=== PATIENT | male | born 1950 | race Caucasian/White ===

== ENCOUNTER 2018-07-21 05:50 | Inpatient (IN) | payer OTHER, MEDICARE ==
[~2018-07-21] VITALS: Ht 167.6 cm; Wt 70.8 kg
[~2018-07-21 05:50] MED LIST: CRESTOR20 M2 PO; MECLIZINE HCL25 MG PO; SCOPOLAMINE1 EAC1 TD; ZOFRAN ODT4 M1 SL
[2018-07-21] MEDS ORDERED: METOPROLOL TART25 M1 PO (06:12)
[2018-07-21] MEDS ORDERED: BRILINTA90 M1 PO (06:12)
[2018-07-21] MEDS ORDERED: LISINOPRIL5 M1 PO (06:12)
[2018-07-21] MEDS ORDERED: LO-DOSE ASPIRIN81 MG PO (06:12)
--- NOTE | 2018-07-21 06:14 | ED GENERAL ADULT ---
History of Present Illness General Chief Complaint: Syncope and Near-Syncope Stated Complaint: PER PT C/O SYNCOPE,WEAKNESS,+N, CARDIAC HX Source: patient, family Exam Limitations: no limitations Vital Signs & Intake/Output Vital Signs & Intake/Output Vital Signs Date Time Temp Pulse Resp B/P B/P Pulse O2 O2 Flow FiO2 Mean Ox Delivery Rate 07/22 0647 101.1 80 18 118/54 90 07/22 0640 101.1 07/22 0000 100.0 07/22 0000 Nasal 2.0L Cannula 07/21 2234 103.1 92 18 118/62 92 Nasal 2.0L Cannula 07/21 2120 100.0 07/21 2036 103.1 07/21 1410 98.4 82 18 101/51 92 Room Air 07/21 1154 99.0 07/21 1137 99.0 77 18 96/51 96 Nasal 1.0L Cannula ED Intake and Output 07/22 0000 07/21 1200 Intake Total 600 1100 Output Total 400 450 Balance 200 650 Intake, IV 1100 Intake, Oral 600 Number 1 Bowel Movements Output, Urine 400 450 Patient 156 lb 156 lb Weight Weight Estimated Measurement Method Allergies Coded Allergies: No Known Allergies (09/06/17) Triage Note: PER PT/ SOB, LABORED AND FEVERS SINCE THURSDAY ALSO NEWLY INCONTINENT, FEVER IN TRIAGE 103.0 Triage Nurses Notes Reviewed? yes Onset: Gradual Duration: day(s): Timing: recent history Injury Environment: home Severity: moderate Modifying Factors: Improves With: rest. Associated Symptoms: cough HPI: 67 YO gentleman h/o OK, s/p stent Oct 2017, h/o vertigo, h/o cigarette smoking, presents with fever for the past 5-6 days, with occasional rigors, also with non productive cough. This morning, approximately 2:30am, he had an episode of near syncope. "I was in the bathroom and got really dizzy... I fell... didn't lose consciousness, but I couldn't get up... I had to roll on my stomach and get up real slowly." He notes loose stool and increased urination, without dysuria, but resulting in him soiling himself. (Carine HORTON,Cristofer Randhawa) Reconcile Medications Aspirin (Lo-Dose Aspirin EC) 81 MG TABLET. 1 TAB PO DAILY HEART (Reported) Atorvastatin Calcium 80 MG TABLET 1 TAB PO DAILY HEART HEALTH (Reported) Lisinopril 5 MG TABLET 1 TAB PO DAILY HTN (Reported) Metoprolol Tartrate 25 MG TABLET 1 TAB PO BID HTN (Reported) Ticagrelor (Brilinta) 90 MG TABLET 1 TAB PO BID HEART (Reported) (Jesus Suazo MD) Past History Travel History Traveled to [place] past 21 day No Medical History Any Pertinent Medical History? see below for history Neurological: NONE EENT: NONE Cardiovascular: hyperlipidemia, [place] W STENT 11/12 CHOL Respiratory: NONE Gastrointestinal: NONE Hepatic: NONE Renal: NONE Musculoskeletal: NONE Psychiatric: NONE Endocrine: NONE Surgical History Surgical History: cardiac stent Psychosocial History What is your primary language Slovak Tobacco Use: Current Daily Use Daily Tobacco Use Amount/Type: =< 4 Cigarettes daily Family History Hx Contributory? No (Carine HORTON,Cristofer Randhawa) Review of Systems Review of Systems Constitutional: Reports: no symptoms. EENTM: Reports: no symptoms. Respiratory: Reports: no symptoms. Cardiovascular: Reports: no symptoms. GI: Reports: no symptoms. Genitourinary: Reports: no symptoms. Musculoskeletal: Reports: no symptoms. Skin: Reports: no symptoms. Neurological/Psychological: Reports: no symptoms. Hematologic/Endocrine: Reports: no symptoms. Immunologic/Allergic: Reports: no symptoms. All Other Systems: Reviewed and Negative (Carine HORTON,Cristofer Randhawa) Physical Exam Physical Exam General Appearance: well developed/nourished, no apparent distress Head: atraumatic, normal appearance Eyes: Bilateral: normal appearance. Ears, Nose, Throat: normal pharynx, normal ENT inspection Neck: normal inspection, supple, full range of motion Respiratory: normal breath sounds, chest non-tender, no respiratory distress, quiet respiration, lungs clear Cardiovascular: regular rate/rhythm Gastrointestinal: normal bowel sounds, soft, non-tender, no organomegaly Rectal: nontender, guiac negative Back: normal inspection, normal range of motion Extremities: normal inspection Neurologic/Psych: no motor/sensory deficits, awake, alert, oriented x 3 Skin: intact, normal color, warm/dry Comments: negative kernig's and brudzinski's sign Core Measures ACS in differential dx? No CVA/TIA Diagnosis: No Sepsis Present: Yes Sepsis Focused Exam Completed? Yes (Cristofer Hawk MD) ED Sepsis Exam Date of Focused Sepsis Exam: 07/21/18 Time of Focused Sepsis Exam: 612 Sepsis Cardiac Exam: Tachycardia Sepsis Resp Exam: CTA Sepsis Cap Refill Exam: <2 Sec Sepsis Peripheral Pulse Exam: Normal Sepsis Peripheral Pulse Location: Radial Sepsis Skin Color Exam: Normal for Ethnicity Skin Temp/Moisture Exam: Warm/Dry (Carine HORTON,Cristofer Randhawa) Progress Differential Diagnoses I considered the following diagnoses in my evaluation of the patient: pneumonia, uti, dysrhythmia, vaso-vagal vs other. Plan of Care: Orders Procedure Date/time Status STREP PNEUMO URINARY ANTIGEN 07/22 08 Active LEGIONELLA URINARY ANTIGEN 07/22 0845 Active HEPATIC FUNCTION PANEL 07/22 06 Complete CBC WITHOUT DIFFERENTIAL 07/22 06 Active BASIC ELECTROLYTES PLUS BUN&CR 07/22 0600 Complete Heart Healthy Diet 07/21 L Active SODIUM 07/21 2000 Complete Weight 07/21 1530 Active Vital Signs 07/21 1530 Active Teach/Educate 07/21 1530 Active Pain Treatment and Response 07/21 1530 Active Nutritional Intake, Monitor 07/21 1530 Active Isolation 07/21 1530 Active Intake & Output 07/21 1530 Active Patient Care Conference 07/21 1530 Active Activity/Ambulation 07/21 1530 Active Change service to 07/21 1333 Active BASIC ELECTROLYTES PLUS BUN&CR 07/21 1300 Complete Patient Data 07/21 1014 Active Pathway - chart 07/21 1005 Active House Staff 07/21 1005 Active SPECIMEN TO BE OBTAINED 07/21 1005 Active URINE OSMOLALITY 07/21 0830 Complete URINE LYTES, SPOT 07/21 0830 Complete SERUM OSMOLALITY 07/21 0610 Complete OXYGEN SETUP CHG 07/21 UNK Complete OXYGEN 07/21 UNK Complete OXYGEN TRANSPORT 07/21 UNK Complete Change service to 07/21 UNK Active Lab Add-on Test 07/21 UNK Active VTE Mechanical Prophylaxis 07/21 UNK Active Vital Signs 07/21 UNK Complete Intake & Output 07/21 UNK Complete Activity/Ambulation 07/21 UNK Active Current Medications Sig/Junior Start time Last Medication Dose Stop Time Status Admin Azithromycin 500 MG DAILY 07/22 0900 AC (Zithromax) Sodium Chloride 250 ML (Normal Saline 0.9%) Ceftriaxone Sodium 1,000 MG DAILY 07/22 09 AC (Rocephin) Heparin Sodium 5,000 UNIT Q8 07/21 1400 AC 07/21 (Porcine) 1600 Acetaminophen 1,000 MG Q8P PRN 07/21 1015 AC 07/22 (Ofirmev) 0640 Morphine Sulfate 2 MG Q8P PRN 07/21 1015 AC (MORPHINE SULFATE) Tramadol HCl 50 MG Q8P PRN 07/21 1015 AC (Ultram) Aspirin Buffered 81 MG DAILY 07/21 1006 AC 07/21 (Ecotrin) 1135 Ticagrelor 90 MG BID 07/21 1006 AC 07/21 (Brilinta) 2036 Laboratory Tests 07/22/18 0720: Anion Gap 9, Estimated GFR > 60, BUN/Creatinine Ratio 17.5, Total Bilirubin 0.8, Direct Bilirubin 0.4, AST 143 H, ALT 96 H, Alkaline Phosphatase 36, Total Protein 4.9 L, Albumin 2.4 L, CBC w Diff Pending, WBC Pending, RBC Pending, Hgb Pending, Hct Pending, MCV Pending, MCH Pending, MCHC Pending, RDW Pending, Plt Count Pending, MPV Pending 07/21/18 2330: 07/21/18 1645: Anion Gap 7, Estimated GFR 55 L, BUN/Creatinine Ratio 19.2 07/21/18 1021: Lactic Acid 0.9 Microbiology 07/22 0845 URINE ROUT: Legionella Antigen - ORD 07/22 0845 URINE ROUT: Streptococcus pneumoniae Antigen (M - ORD 07/22 0510 URINE ROUT: Urine Culture - RECD 07/21 2330 NASOPHARYN: Influenza Virus A & B Rapid Smear - COMP Diagnostic Imaging: Viewed by Me: Radiology Read, CT Scan. Discussed w/RAD: Radiology Read, CT Scan. Initial ED EKG: sinus, no acute changes (Carine HORTON,Cristofer Randhawa) Differential Diagnoses I considered the following diagnoses in my evaluation of the patient: (Fernie Page DO) Departure Departure Disposition: STILL A PATIENT Condition: Stable Clinical Impression Primary Impression: Near syncope Secondary Impressions: Fever Referrals: Ladarius HORTON,Chad Reardon (PCP/Family) Departure Forms: Customer Survey General Discharge Information Comments pt to be signed out to dr. suazo at 7am, labs, studies pending. (Carine HORTON,Cristofer Randhawa) Admission Note Spoke With: Keiko Rizo MD Documentation of Exam: Documentation of any treatments & extenuating circumstances including Concerns Regarding Discharge (functional status, medication knowledge or non-compliance, living conditions, etc.) that warrant an admission rather than observation: [ Patient needs admission for IV antibiotics, IV fluids, oxygen. Discharge at this time would likely cause untoward outcome. The patient was signed out to me by Dr. Hawk at 7 AM (Fernie Page DO) Critical Care Note Critical Care Note Critical Care Time: non-applicable (Carine HORTON,Cristofer Randhawa)
[2018-07-21 06:43] LABS: ABSOLUTE BASOPHIL COUNT 0 /CUMM (0.0-0.2); ABSOLUTE EOSINOPHIL COUNT 0 /CUMM (0.0-0.7); ABSOLUTE GRANULOCYTE CT 11.9 /CUMM (1.4-6.5); ABSOLUTE LYMPH COUNT 0.5 /CUMM (1.2-3.4); ABSOLUTE MONOCYTE COUNT 0.4 /CUMM (0.10-0.60); BASOPHIL % 0 % (0.0-2.0); EOSINOPHIL % 0 % (0-5); GRANULOCYTE % 92.9 % (42.2-75.2); HEMATOCRIT 35.7 % (42-52); MEAN CORPUSCULAR HGB 31.4 PG (27.0-31.0); MEAN CORPUSCULAR HGB CONC 33.5 G/DL (33.0-37.0); MEAN CORPUSCULAR VOLUME 93.8 FL (80.0-94.0); MEAN PLATELET VOLUME 7.5 FL (7.4-10.4); PLATELET COUNT 184 /CUMM (130-400); RBC DISTRIBUTION WIDTH 13.5 % (11.5-14.5); RED BLOOD CELL CT 3.81 /CUMM (4.70-6.10); WHITE BLOOD CELL COUNT 12.8 /CUMM (4.8-10.8)
[2018-07-21 06:48] LABS: PT 14.5 SEC (9.4-12.5); PTT 32 SEC (25-37)
--- NOTE | 2018-07-21 07:54 | CT SCAN REPORT ---
EXAMINATION: CT HEAD WITHOUT CONTRAST CLINICAL INFORMATION: Headache, confusion COMPARISON: None TECHNIQUE: Contiguous axial imaging was performed from the skull base to vertex without intravenous administration of contrast. DLP: 644 mGy-cm FINDINGS: There is no evidence of acute intracranial hemorrhage or territorial infarction. No abnormal mass effect or midline shift is seen. Blandon to white matter differentiation is well preserved. No extra-axial fluid collections are identified. The ventricles are normal in size. There is bilateral confluent periventricular and subcortical white matter low-attenuation which is nonspecific but can be seen with chronic microvascular ischemic changes. The osseous structures and soft tissues are normal. The mastoid air cells are clear. Opacification of scattered ethmoid air cells. IMPRESSION: No acute intracranial pathology. Extensive white matter changes which are nonspecific but could be seen with chronic microvascular ischemia. Scattered paranasal sinus disease.
--- NOTE | 2018-07-21 07:59 | CT SCAN REPORT ---
EXAMINATION: CT CERVICAL SPINE WITHOUT CONTRAST CLINICAL INFORMATION: Fall, trauma. COMPARISON: None TECHNIQUE: Multidetector CT imaging of the cervical spine was performed without the use of intravenous contrast. DLP: 339 mGy-cm FINDINGS: No evidence of acute cervical spine fracture. Cervical vertebral bodies are within normal limits for height and alignment. Degenerative changes of the cervical spine are seen with loss of intervertebral disc height and disc osteophyte formation at C6-C7. Foci of gas are seen along the left internal jugular vein, likely related to recent IV line placement. Emphysematous changes are seen involving the lung apices. IMPRESSION: No acute fracture in the cervical spine.
--- NOTE | 2018-07-21 08:16 | RADIOLOGY REPORT ---
EXAMINATION: XR CHEST CLINICAL INFORMATION: Cough. Fever. COMPARISON: Chest radiograph dated 08/31/2014. TECHNIQUE: 2 views of the chest were obtained. FINDINGS: There is a dense consolidation within the medial right lower lung consistent with a right lower lobe pneumonia. There is increased density within the right hilum which may reflect underlying reactive adenopathy. Left lung remains clear. Cardiac silhouette is normal in size and configuration. There is mild atherosclerotic calcification of the aortic knob. No pleural effusion or pneumothorax. There are degenerative changes of the acromioclavicular joints. There are mild degenerative changes throughout the thoracic spine. IMPRESSION: There is a dense medial right lower lung consolidation consistent with right lower lobe pneumonia. Increased density within the right hilum may reflect underlying reactive adenopathy. Repeat chest radiograph in 6-8 weeks is recommended to ensure resolution and exclude an underlying mass lesion.
[2018-07-21] MEDS ORDERED: ATORVASTATIN CA80 M1 PO (10:08)
--- NOTE | 2018-07-21 10:13 | History & Physical ---
Luis M Acevedo 07/21/18 1013: General Information and HPI MD Statement: I have seen and personally examined KAVIN AHMADI and documented this H&P. The patient is a 67 year old M who presented with a patient stated chief complaint of increased lethargy, fever, non-productive cough. Source of Information: patient Exam Limitations: no limitations History of Present Illness: Mr Ahmadi is a 67-year-old gentleman with a past history of coronary artery disease (status post PCI-10/[address] [facility]), basal cell carcinoma who came to the hospital with a chief concern of increased tiredness, myalgias and nonproductive cough x 1 wk. He was known to be in his usual state of health until 1 week ago. He developed increased tiredness, myalgias, joint pains, occasional headache. Also reported nonproductive cough in the last 4 days. Reported occasional tachypnea, but did not have any dyspnea. Also had fever 102 associated with chills and nausea. No abdominal pain, dysuria, diarrhea. Smoker, [id number] smoking history. No chest pain, palpitations. The night prior to admission, he fell down while he was walking down to his bathroom. No head injury. No prodromal symptoms, and activated distal mechanical reasons. 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 No travel outside [place]. Allergies/Medications Allergies: Coded Allergies: No Known Allergies (09/06/17) Home Med list Aspirin (Lo-Dose Aspirin EC) 81 MG TABLET.DR 1 TAB PO DAILY HEART (Reported) Atorvastatin Calcium 80 MG TABLET 1 TAB PO DAILY HEART HEALTH (Reported) Lisinopril 5 MG TABLET 1 TAB PO DAILY HTN (Reported) Metoprolol Tartrate 25 MG TABLET 1 TAB PO BID HTN (Reported) Ticagrelor (Brilinta) 90 MG TABLET 1 TAB PO BID HEART (Reported) Past History Travel History Traveled to [place] past 21 day No Medical History Neurological: NONE EENT: NONE Cardiovascular: hyperlipidemia, [place] W STENT 11/12 CHOL Respiratory: NONE Gastrointestinal: NONE Hepatic: NONE Renal: NONE Musculoskeletal: NONE Psychiatric: NONE Endocrine: NONE Surgical History Surgical History: cardiac stent Past Family/Social History Family History Relations & Conditions if any Relation not specified for: *No pertinent family history Review of Systems Review of Systems Constitutional: Reports: see HPI. EENTM: Denies: blurred vision, visual changes. Cardiovascular: Denies: chest pain. Respiratory: Denies: cough, short of breath. GI: Denies: abdominal pain. Genitourinary: Denies: discharge. Skin: Denies: cysts. Exam & Diagnostic Data Last 24 Hrs of Vital Signs/I&O Vital Signs Date Time Temp Pulse Resp B/P B/P Pulse O2 O2 Flow FiO2 Mean Ox Delivery Rate 07/21 08 99.3 82 18 94/50 94 Room Air Room Air 07/21 0703 99.7 88 18 94 Nasal 2.0L Cannula 07/21 06 103.0 07/21 0601 103.0 105 24 117/62 90 Room Air Intake & Output 07/21 1600 07/21 0800 07/21 0000 Intake Total 1100 Output Total 200 Balance -200 1100 Intake, IV 1100 Output, Urine 200 Patient 156 lb Weight Physical Exam General Appearance Alert, Oriented X3, Cooperative, No Acute Distress Skin No Rashes, No Breakdown Skin Temp/Moisture Exam: Warm/Dry Sepsis Skin Exam (color): Normal for Ethnicity HEENT Atraumatic, PERRLA, EOMI, Mucous Membr. moist/pink Neck Supple, No JVD, No thryomegaly Lymphatic Axillary nl, Cervical nl Cardiovascular Regular Rate, Normal S1, Normal S2, No Murmurs, Gallops, Rubs Lungs Normal Air Movement, basal crackles on the right lung. Abdomen Soft, No Tenderness, No Hepatospenomegaly, No Masses Neurological Normal Speech, Strength at 5/5 X4 Ext, Normal Tone, Sensation Intact, Cranial Nerves 3-12 NL, Reflexes 2+ Extremities No Clubbing, No Cyanosis, No Edema, Normal Pulses, No Tenderness/ Swelling Vascular Normal Pulses, Pulses Symmetrical Sepsis Peripheral Pulse Location: Dorsalis Pedis Sepsis Peripheral Pulse Exam: Normal Sepsis Cap Refill Exam: <2 Sec Last 24 Hrs of Labs/[place]: Laboratory Tests 07/21/18 1021: Lactic Acid Pending 07/21/18 0830: Urinalysis MOD H, Urine Color YEL, Urine Clarity HAZY H, Urine pH 6.0, Ur Specific [place] 1.020, Urine Protein 30 H, Urine Ketones NEG, Urine Nitrite NEG, Urine Bilirubin NEG, Urine Urobilinogen 0.2, Ur Leukocyte Esterase NEG, Ur Microscopic SEDIMENT EXAMINED, Urine RBC 1-3, Granular Casts 1-3 H, Urine Hemoglobin LARGE H, Urine Glucose NEG 07/21/18 0830: Urine Osmolality 421, Ur Random Creatinine 99.6, Ur Random Sodium < 5 L, Ur Random Potassium 42.6, Fraction Sodium Excret 07/21/18 0611: Amylase Cancelled, Lipase Cancelled 07/21/18 0610: Anion Gap 11, Estimated GFR 47 L, BUN/Creatinine Ratio 20.0, Glucose 125 H, Serum Osmolality 275 L, Lactic Acid 1.3, Calcium 8.6, Total Bilirubin 1.1, AST 132 H, ALT 83 H, Alkaline Phosphatase 43, Troponin I 0.07, Total Protein 6.7, Albumin 3.7, Globulin 3.0, Albumin/Globulin Ratio 1.2, Amylase 59, Lipase 173, PT 14.5 H, INR 1.33 H, APTT 32, CBC w Diff MAN DIFF ORDERED, RBC 3.81 L, MCV 93.8, MCH 31.4 H, MCHC 33.5, RDW 13.5, MPV 7.5, Gran % 92.9 H, Lymphocytes % 3.7 L, Monocytes % 3.4, Eosinophils % 0, Basophils % 0, Absolute Granulocytes 11.9 H, Segmented Neutrophils 71, Band Neutrophils 18 H, Absolute Lymphocytes 0.5 L, Lymphocytes 9 L, Monocytes 2, Absolute Monocytes 0.4, Absolute Eosinophils 0, Absolute Basophils 0, Platelet Estimate ADEQUATE, Normocytic RBCs VERIFIED, Normochromic RBCs VERIFIED 07/21/18 0607: D-Dimer High Sensitivty Cancelled Microbiology 07/21 0639 BLOOD: Blood Culture - RECD 07/21 617 NASOPHARYN: Influenza Virus A & B Rapid Smear - ORD 07/21 612 URINE ROUT: Urine Culture - ORD 07/21 610 BLOOD: Blood Culture - RECD Diagnostic Data EKG Results NSR, No STTWI. CXR Results There is a dense medial right lower lung consolidation consistent with right lower lobe pneumonia. Increased density within the right hilum may reflectunderlying reactive adenopathy. Repeat chest radiograph in 6-8 weeks isrecommended to ensure resolution and exclude an underlying mass lesion. Other Results CT CERV SPINE WO IV CONTRAST CT HEAD WO IV CONTRAST No acute intracranial pathology. Extensive white matter changes which are nonspecific but could be seen with chronic microvascular ischemia. Scattered paranasal sinus disease. Assessment/Plan Assessment: Mr Ahmadi is a 67-year-old gentleman with a past history of coronary artery disease (status post PCI-10/[address] [facility]), basal cell carcinoma who came to the hospital with a chief concern of increased tiredness, myalgias and nonproductive cough x 1 wk likely secondary to community acquired pneumonia. At the time of admission, temperature 99.0, MAXIMUM TEMPERATURE 103), pulse rate 88, blood pressure 94/50, pulse ox 94% on room air. Pertinent lab findings: WBC 12.8, with granulocytosis, band neutrophils 18%. Hemoglobin 12.0 Platelet count 184. Sodium 129, potassium 4.0, chloride 94. BUN 30, creatinine 1.5(baseline 1.2) Lactic acid 1.3 Liver chemistries- AST 132, ALT 83, alkaline phosphatase 43. Chest x-ray- There is a dense medial right lower lung consolidation consistent with right lower lobe pneumonia. Increased density within the right hilum may reflect underlying reactive adenopathy. Etiology in this case with typical signs and symptoms of pneumonia, leukocytosis and radiological signs of consolidation is likely bacterial pneumonia. Typical organisms usually considered are strep pneumo, Haemophilus, Klebsiella, Moraxella, staph aureus, while atypicals such as mycoplasma, chlamydophila, Legionella and viral but usually causing the infection. Given hyponatremia, elevated liver enzymes legionella is possible. No previous hisotory of health care associated pneumonia, or aspiration. Based on the severity of illness, and elevated CURB 65 score, and coexisting conditions, she needs to be admitted to general medicine service. Other differentials considered CHF, COPD. In regards to hyponatremia, it appears that he might have had dehydration that would have contradicted to elevated ADH secretion that is leading to hyponatremia. We'll check sodium after fluid resuscitation to see if sodium is corrected. Avoid overcorrection of not more than 8 mEq per liter per day. Problem list: -Sepsis, community-acquired pneumonia -Elevated liver enzymes -Leukocytosis, granulocytosis with bands -History of hypertension -Past history of smoking -Past history of coronary artery disease, [place]. -Hyponatremia Plan: #Fluid resuscitation as needed. #Supplemental oxygen prn #Inhaled bronchodilators as needed #Follow CBCs with differential, serum chemistruies #Check blood cultures, sputum cultures and Gram stain #Check urine antigen test for strep pneumo and legionella #Trend lactate for prognosis. #Start IV antibiotics-preferably beta lactam+ macrolide at this time. Tailor as per culture and sensitivities. #Check electrolytes every 4 hourly #Urine sodium, Serum and urine osmolality #For hypovolemic hyponatremia treated with repleting volume with normal saline. #Continue his aspirin and Ticargrelor. #Continue statin at this time. If there is any concern for statin induced myopathy would consider stopping it. Would not stop it unless consulted with cards. #DVT Ppx-heparin sc. As Ranked By This Provider Problem List: 1. Fever Core Measures/Misc (07/12) Acute Coronary Syndrome ACS Diagnosis: No Congestive Heart Failure Congestive Heart Failure Diagnosis No Cerebrovascular Accident CVA/TIA Diagnosis: No VTE (View Protocol) VTE Risk Factors No risk factors No Mechanical VTE Prophylaxis d/t N/A MechProphylax Ordered No VTE Pharm Prophylaxis d/t NA PharmProphylax ordered Sepsis (View protocol) Sepsis Present: Yes If YES complete Sepsis Event Note If YES complete Sepsis Event Note Ingrid Apple 07/21/18 1336: Core Measures/Misc (07/12) Sepsis (View protocol) If YES complete Sepsis Event Note If YES complete Sepsis Event Note Attending MD Review Statement Attending Statement Attending MD Statement: examined this patient, discuss w/resident/PA/ENTRY LEVEL WEB DEVELOPER, agreed w/resident/PA/ENTRY LEVEL WEB DEVELOPER, discussed with family, reviewed EMR data (avail), discussed with nursing, discussed with case mgmt, reviewed images, amended to note
[2018-07-21 14:10] VITALS: BP 101/51
--- NOTE | 2018-07-21 20:26 | Sepsis Event Note ---
Sepsis Event Note Severe Sepsis Severe Sepsis Present: No Septic Shock Septic Shock Present: No Sepsis Focused Exam Sepsis Cardiac Exam: Tachycardia Sepsis Resp Exam: Ronchi Sepsis Cap Refill Exam: <2 Sec Sepsis Peripheral Pulse Exam: Normal Sepsis Peripheral Pulse Location: Radial Sepsis Skin Exam (color): Normal for Ethnicity Skin Temp/Moisture Exam: Warm/Dry
[2018-07-21 22:34] VITALS: BP 118/62
--- NOTE | 2018-07-22 06:45 | PN- Housestaff ---
Ana Danielle 07/22/18 0644: Subjective Follow-up For: Right lower lobe community-acquired pneumonia Complaints: no complaints Subjective: Patient seen and examined sitting comfortably in bed having breakfast. He complains of feeling hot and sweaty alternating with chills. Says his appetite is back to normal after 4 days. Reports minimal nonproductive cough. He has been ambulating in his room and on the floor without difficulty. Review of Systems Constitutional: Reports: see HPI, fever. Objective Last 24 Hrs of Vital Signs/I&O Vital Signs Date Time Temp Pulse Resp B/P B/P Pulse O2 O2 Flow FiO2 Mean Ox Delivery Rate 07/22 0647 101.1 80 18 118/54 90 07/22 0640 101.1 07/22 0000 100.0 07/22 0000 Nasal 2.0L Cannula 07/21 2234 103.1 92 18 118/62 92 Nasal 2.0L Cannula 07/21 2120 100.0 07/21 2036 103.1 07/21 1410 98.4 82 18 101/51 92 Room Air Intake & Output 07/22 1600 07/22 0800 07/22 0000 Intake Total 600 600 Output Total Balance 600 600 Intake, IV 120 Intake, Oral 480 600 Number 0 1 Bowel Movements Physical Exam General Appearance: Alert, Oriented X3, Cooperative Other Physical Findings: Skin: No Breakdown Skin Temp/Moisture Exam: Sweaty, warm/Dry Sepsis Skin Exam (color): Normal for Ethnicity HEENT: Atraumatic, mucous Membr. moist/pink Neck: Supple, No JVD Cardiovascular: Regular Rate, Normal S1, Normal S2, No Murmurs Lungs: CTA, no crackles, wheezes, rhonchi, or rubs Abdomen: Normal Bowel Sounds, Soft, No Tenderness, No Hepatospenomegaly Neurological: Normal Speech, normal gait, Normal Tone, Sensation Intact Extremities: No Clubbing, No Cyanosis, No edema,Normal Pulses Vascular: Pulses Symmetrical Current Medications: Current Medications Sig/Junior Start time Last Medication Dose Route Stop Time Status Admin Acetaminophen 500 MG Q6P PRN 07/22 1330 UNVr PO Acetaminophen 1,000 MG Q8P PRN 07/21 1015 DC 07/22 IV 0640 Aspirin Buffered 81 MG DAILY 07/21 1006 AC 07/22 PO 0946 Azithromycin 500 MG DAILY 07/22 0900 AC 07/22 Sodium Chloride 250 ML IV 0946 Ceftriaxone Sodium 1,000 MG DAILY 07/22 0900 AC 07/22 IV 0946 Heparin Sodium 5,000 UNIT Q8 07/21 1400 AC 07/21 (Porcine) SC 1600 Influenza Virus 0.5 ML ONCE ONE 07/21 1545 DC Vaccine IM 07/21 1546 Morphine Sulfate 2 MG Q8P PRN 07/21 1015 AC IV Sodium Chloride 1,000 ML Q8H 07/21 0930 DC 07/21 IV 07/21 1729 0937 Ticagrelor 90 MG BID 07/21 1006 AC 07/22 PO 0946 Tramadol HCl 50 MG Q8P PRN 07/21 1015 AC PO Last 24 Hrs of Lab/Eugene Results Last 24 Hrs of Labs/Mics: Laboratory Tests 07/22/18 0720: Anion Gap 9, Estimated GFR > 60, BUN/Creatinine Ratio 17.5, Total Bilirubin 0.8, Direct Bilirubin 0.4, AST 143 H, ALT 96 H, Alkaline Phosphatase 36, Total Protein 4.9 L, Albumin 2.4 L, CBC w Diff MAN DIFF ORDERED, RBC 2.97 L, MCV 93.3, MCH 31.3 H, MCHC 33.5, RDW 13.4, MPV 7.8, Gran % 90.3 H, Lymphocytes % 6.4 L, Monocytes % 3.3, Eosinophils % 0, Basophils % 0, Absolute Granulocytes 8.6 H, Segmented Neutrophils 67, Band Neutrophils 27 H, Absolute Lymphocytes 0.6 L, Lymphocytes 3 L, Monocytes 3, Absolute Monocytes 0.3, Absolute Eosinophils 0, Absolute Basophils 0, Platelet Estimate ADEQUATE, Normocytic RBCs VERIFIED, Normochromic RBCs VERIFIED, Basophilic Stippling SLIGHT 07/21/18 2330: 07/21/18 1645: Anion Gap 7, Estimated GFR 55 L, BUN/Creatinine Ratio 19.2 Microbiology 07/22 1125 URINE ROUT: Legionella Antigen - COMP LEGIONELLA URINARY ANTIGEN 07/22 112 URINE ROUT: Streptococcus pneumoniae Antigen (M - COMP 07/22 0510 URINE ROUT: Urine Culture - RECD 07/21 2330 NASOPHARYN: Influenza Virus A & B Rapid Smear - COMP Assessment/Plan Assessment: Patient is 67-year-old man with a past history significant for coronary artery disease (status post PCI-10/2017 at [facility]), basal cell carcinoma who presented to the hospital with a chief complaint of increased tiredness, myalgias and nonproductive cough x 1 wk. he is being treated for right lower lobe community acquired pneumonia. Pertinent lab findings: White cell count decreased from 12.8 to 9.6 today. Bands increased from 18 to 27 today AST 132, ALT 83, alkaline phosphatase 43. CXR: There is a dense medial right lower lung consolidation consistent with right lower lobe pneumonia. Increased density within the right hilum may reflectunderlying reactive adenopathy. Repeat chest radiograph in 6-8 weeks isrecommended to ensure resolution and exclude an underlying mass lesion. Problems: 1.Right lower lobe community-acquired pneumonia 2.hyponatremia. Sodium is 132 today 3.transaminitis. AST 143, ALT 96, alk phos 36 4.sepsisresolved Assessment and plan: disease. Continue current management with azithromycin 500 IV daily and ceftriaxone 1000 IV daily being 103.1 room air. Problem List: 1. Community acquired pneumonia Pain Ratin Pain Location: none Pain Goal: Remain pain free Pain Plan: pain pathway Tomorrow's Labs & Rationales: CBC, BEP, LFTs Ingrid Apple 07/22/18 1137: Attending MD Review Statement Attending Statement Attending MD Statement: examined this patient, discuss w/resident/PA/REMOTE CONTROL MIRROR INSTALLER, agreed w/resident/PA/REMOTE CONTROL MIRROR INSTALLER, discussed with family, reviewed EMR data (avail), discussed with nursing, discussed with case mgmt, reviewed images, amended to note Attending Assessment/Plan: Mr Saxena is a 67-year-old gentleman with a past history of coronary artery disease (status post PCI-10/2017 at [facility]), basal cell carcinoma who is admitted to the hospital with a chief concern of increased tiredness, myalgias and nonproductive cough x 1 wk 2/2 community acquired pneumonia with right lobe consolidation Overnight patient had fever. cough+ sputum+ Patient started on broad spectrum abx, oxygen supplementation prn, TRCs, blood cultures, obta[place]un sputum analysis. continue rest of care. gi/dvt prophyalxis
[2018-07-22 06:47] VITALS: BP 118/54
[2018-07-22 09:01] LABS: ABSOLUTE BASOPHIL COUNT 0 /CUMM (0.0-0.2); ABSOLUTE EOSINOPHIL COUNT 0 /CUMM (0.0-0.7); ABSOLUTE LYMPH COUNT 0.6 /CUMM (1.2-3.4); ABSOLUTE MONOCYTE COUNT 0.3 /CUMM (0.10-0.60); BASOPHIL % 0 % (0.0-2.0); EOSINOPHIL % 0 % (0-5)
[2018-07-22 09:37] LABS: ABSOLUTE GRANULOCYTE CT 8.6 /CUMM (1.4-6.5); GRANULOCYTE % 90.3 % (42.2-75.2); MEAN CORPUSCULAR HGB 31.3 PG (27.0-31.0); MEAN CORPUSCULAR HGB CONC 33.5 G/DL (33.0-37.0); MEAN CORPUSCULAR VOLUME 93.3 FL (80.0-94.0); MEAN PLATELET VOLUME 7.8 FL (7.4-10.4); PLATELET COUNT 157 /CUMM (130-400); RBC DISTRIBUTION WIDTH 13.4 % (11.5-14.5); RED BLOOD CELL CT 2.97 /CUMM (4.70-6.10); WHITE BLOOD CELL COUNT 9.6 /CUMM (4.8-10.8)
[2018-07-22 10:00] LABS: HEMATOCRIT 27.7 % (42-52)
[2018-07-22 15:12] VITALS: BP 106/55
--- NOTE | 2018-07-22 15:56 | Patient Discharge Instructions ---
See Addendum Acute Coronary Syndrome Inclusion Criteria At DC or during hospital stay patient has or had the following: ACS DIAGNOSIS No Discharge Core Measures Meds if any: Prescribed or Continued at Discharge Meds if any: NOT Prescribed or Continued at Discharge Congestive Heart Failure Inclusion Criteria At DC or during hospital stay patient has or had the following: CHF DIAGNOSIS No Discharge Core Measures Meds if any: Prescribed or Continued at Discharge Meds if any: NOT Prescribed or Continued at Discharge Cerebrovascular accident Inclusion Criteria At DC or during hospital stay patient has or had the following: CVA/TIA Diagnosis No Discharge Core Measures Meds if any: Prescribed or Continued at Discharge Meds if any: NOT Prescribed or Continued at Discharge Venous thromboembolism Inclusion Criteria VTE Diagnosis No VTE Type NONE VTE Confirmed by (Test) NONE Discharge Core Measures - Per Current guidelines, there needs to be overlap - treatment for the first 5 days of Warfarin therapy. - If discharged on Warfarin prior to 5 days of - overlap therapy, the patient will need to be - assessed for post discharge needs including - *Post discharge parental anticoagulation - *Warfarin and/or parental anticoagulation education - *Follow up date to check INR post discharge At least 5 days overlap therapy as Inpatient No Meds if any: Prescribed or Continued at Discharge Note: Overlap Therapy is Warfarin and Anticoagulant Meds if any: NOT Prescribed or Continued at Discharge
[2018-07-22 21:26] VITALS: BP 122/70
[2018-07-23 05:38] VITALS: BP 137/69
--- NOTE | 2018-07-23 07:05 | PN- Housestaff ---
Ana Danielle 07/23/18 0705: Subjective Follow-up For: Legionnaires' disease Subjective: Patient was seen and examined sitting up stating that this morning having breakfast. Review of Systems Constitutional: Reports: see HPI. Objective Last 24 Hrs of Vital Signs/I&O Vital Signs Date Time Temp Pulse Resp B/P B/P Pulse O2 O2 Flow FiO2 Mean Ox Delivery Rate 07/24 1416 97.8 81 20 108/58 92 Room Air Physical Exam General Appearance: Alert, Oriented X3, Cooperative Other Physical Findings: Skin: No Breakdown Skin Temp/Moisture Exam: Sweaty, warm/Dry Sepsis Skin Exam (color): Normal for Ethnicity HEENT: Atraumatic, mucous Membr. moist/pink Neck: Supple, No JVD Cardiovascular: Regular Rate, Normal S1, Normal S2, No Murmurs Lungs: CTA, mild RLL crackles Abdomen: Normal Bowel Sounds, Soft, No Tenderness, No Hepatospenomegaly Neurological: Normal Speech, normal gait, Normal Tone, Sensation Intact Extremities: No Clubbing, No Cyanosis, No edema,Normal Pulses Vascular: Pulses Symmetrical Current Medications: Current Medications Sig/Junior Start time Last Medication Dose Route Stop Time Status Admin Acetaminophen 500 MG Q6P PRN 07/22 1330 DCD 07/22 PO 2107 Aspirin Buffered 81 MG DAILY 07/21 1006 DCD 07/24 PO 1101 Azithromycin 500 MG DAILY 07/22 0900 DCD 07/24 Sodium Chloride 250 ML IV 1054 Heparin Sodium 5,000 UNIT Q8 07/21 1400 DCD 07/23 (Porcine) SC 1454 Morphine Sulfate 2 MG Q8P PRN 07/21 1015 DCD IV Nicotine 14 MG DAILY 07/23 1330 DCD 07/24 TOP 1054 Tamsulosin HCl 0.4 MG DAILY 07/23 1030 DCD 07/23 PO 1231 Ticagrelor 90 MG BID 07/21 1006 DCD 07/24 PO 1053 Tramadol HCl 50 MG Q8P PRN 07/21 1015 DCD PO Assessment/Plan Assessment: Patient is 67-year-old man with a past history significant for coronary artery disease (status post PCI-10/2017 at [facility]), basal cell carcinoma who presented to the hospital with a chief complaint of increased tiredness, myalgias and nonproductive cough x 1 wk. he is being treated for right lower lobe community acquired pneumonia. Problems: 1.Legionnaires disease 2.hyponatremia 3.transaminitis 4.sepsisresolved Assessment and plan: -Continue current management with azithromycin 500 IV daily - d/c ceftriaxone 1000 IV daily room air. - tamsulosin 0.4 mg po & will obtain post void bladder scan Problem List: 1. Community acquired pneumonia 2. Legionnaires' disease Pain Ratin Pain Location: none Pain Goal: Remain pain free Mary Carmen HORTON,Sana 07/23/18 1109: Objective Last 24 Hrs of Vital Signs/I&O Vital Signs Date Time Temp Pulse Resp B/P B/P Pulse O2 O2 Flow FiO2 Mean Ox Delivery Rate 07/23 1600 Room Air 07/23 1347 98.1 87 20 116/60 96 Room Air 07/23 1346 99.0 75 20 118/80 96 Room Air 07/23 1231 78 128/80 07/23 0630 18 07/23 0538 99.2 75 137/69 90 Intake & Output 07/23 1600 07/23 0800 07/23 0000 Intake Total 868 288 5791 Output Total Balance 331 352 3958 Intake, Oral 893 383 2721 Number 2 Bowel Movements Physical Exam General Appearance: Alert, Oriented X3, Cooperative Assessment/Plan Problem List: 1. Community acquired pneumonia Pain Ratin Pain Location: n/a Pain Goal: Remain pain free Pain Plan: Pathway Tomorrow's Labs & Rationales: CBC Attending MD Review Statement Attending Statement Attending MD Statement: examined this patient, discuss w/resident/PA/LAW FIRM CONSULTANT, agreed w/resident/PA/LAW FIRM CONSULTANT, discussed with family, reviewed EMR data (avail), discussed with nursing, discussed with case mgmt, reviewed images, amended to note Attending Assessment/Plan: Mr Saxena is a 67-year-old gentleman with a past history of coronary artery disease (status post PCI-10/2017 at [facility]), basal cell carcinoma who is admitted to the hospital with a chief concern of increased tiredness, myalgias and nonproductive cough x 1 wk 2/2 community acquired pneumonia with right lobe consolidation from legionella pneumonia. Overnight patient had fever. T 101 WBC 10 minimal use of accessory muscles. Ambulatroy, cough without sputum. Had diarrhea Discontinue ceftriaxone if cultures remains negative. Contnue azithromycin 500mg x 5 days, oxygen supplementation prn, TRCs, f/u blood cultures, send sputum analysis. continue supporitve care. urinary incontinence 2/2 bph continue tamsulosin. check bladder scan. gi/dvt prophyalxis Ingrid Apple 07/23/18 1126: Attending MD Review Statement Attending Statement Attending MD Statement: examined this patient, discuss w/resident/PA/LAW FIRM CONSULTANT, agreed w/resident/PA/LAW FIRM CONSULTANT, discussed with family, reviewed EMR data (avail), discussed with nursing, discussed with case mgmt, reviewed images, amended to note
[2018-07-23 08:37] LABS: ABSOLUTE BASOPHIL COUNT 0 /CUMM (0.0-0.2); ABSOLUTE EOSINOPHIL COUNT 0 /CUMM (0.0-0.7); ABSOLUTE GRANULOCYTE CT 9.5 /CUMM (1.4-6.5); ABSOLUTE LYMPH COUNT 0.7 /CUMM (1.2-3.4); ABSOLUTE MONOCYTE COUNT 0.4 /CUMM (0.10-0.60); BASOPHIL % 0 % (0.0-2.0); EOSINOPHIL % 0 % (0-5); GRANULOCYTE % 89.6 % (42.2-75.2); HEMATOCRIT 27.4 % (42-52); MEAN CORPUSCULAR HGB 31.8 PG (27.0-31.0); MEAN CORPUSCULAR HGB CONC 34.2 G/DL (33.0-37.0); MEAN CORPUSCULAR VOLUME 92.8 FL (80.0-94.0); MEAN PLATELET VOLUME 7.5 FL (7.4-10.4); PLATELET COUNT 201 /CUMM (130-400); RED BLOOD CELL CT 2.96 /CUMM (4.70-6.10); WHITE BLOOD CELL COUNT 10.6 /CUMM (4.8-10.8)
[2018-07-23 13:46] VITALS: BP 118/80
[2018-07-23 13:47] VITALS: BP 116/60
[2018-07-23 22:01] VITALS: BP 121/61
[2018-07-24 06:00] VITALS: BP 103/50
--- NOTE | 2018-07-24 09:16 | PN- Housestaff ---
Subjective Follow-up For: Legionnaires' disease Subjective: Patient seen and examined lying comfortably in bed this morning. He does complain of to 3 watery bowel movements. He does complain of "urinary difficulty ". Denies any belly pain, nausea, vomiting he does report that his. Breathing and cough is much better than yesterday. He has been walking around in the hallways without any difficulties. Appetite is better, sleep is better. Review of Systems Constitutional: Reports: see HPI. Objective Last 24 Hrs of Vital Signs/I&O Vital Signs Date Time Temp Pulse Resp B/P B/P Pulse O2 O2 Flow FiO2 Mean Ox Delivery Rate 07/24 1109 102/56 07/24 0600 97.9 65 20 103/50 92 Room Air 07/24 0000 Room Air 07/23 2201 100.2 75 18 121/61 91 Room Air 07/23 1600 Room Air 07/23 1347 98.1 87 20 116/60 96 Room Air 07/23 1346 99.0 75 20 118/80 96 Room Air 07/23 1231 78 128/80 Intake & Output 07/24 1600 07/24 0800 07/24 0000 Intake Total 100 1000 Output Total Balance 100 1000 Intake, Oral 100 1000 Physical Exam General Appearance: Alert, Oriented X3, Cooperative, No Acute Distress Current Medications: Current Medications Sig/Junior Start time Last Medication Dose Route Stop Time Status Admin Acetaminophen 500 MG Q6P PRN 07/22 1330 AC 07/22 PO 2107 Aspirin Buffered 81 MG DAILY 07/21 1006 AC 07/24 PO 1101 Azithromycin 500 MG DAILY 07/22 0900 AC 07/24 Sodium Chloride 250 ML IV 1054 Ceftriaxone Sodium 1,000 MG DAILY 07/22 0900 DC 07/23 IV 1039 Heparin Sodium 5,000 UNIT Q8 07/21 1400 AC 07/23 (Porcine) SC 1454 Morphine Sulfate 2 MG Q8P PRN 07/21 1015 AC IV Nicotine 14 MG DAILY 07/23 1330 AC 07/24 TOP 1054 Patient Medication 1 ED ONE ONE 07/23 2000 [place] Teaching ED 07/23 2001 Tamsulosin HCl 0.4 MG DAILY 07/23 1030 AC 07/23 PO 1231 Ticagrelor 90 MG BID 07/21 1006 AC 07/24 PO 1053 Tramadol HCl 50 MG Q8P PRN 07/21 1015 AC PO Last 24 Hrs of Lab/Eugene Results Last 24 Hrs of Labs/Mics: Laboratory Tests 07/24/18 0650: Anion Gap 8, Estimated GFR > 60, BUN/Creatinine Ratio 15.6 Assessment/Plan Assessment: Patient is 67-year-old man with a past history significant for coronary artery disease (status post PCI[facility]10/2017 at [facility]), basal cell carcinoma who presented to the hospital with a chief complaint of increased tiredness, myalgias and nonproductive cough x 1 wk. he is being treated for right lower lobe community acquired pneumonia. Pertinent lab findings: White cell count decreased from 12.8 to 9.6 today. Bands increased from 18 to 27 today AST 132, ALT 83, alkaline phosphatase 43. CXR: There is a dense medial right lower lung consolidation consistent with right lower lobe pneumonia. Increased density within the right hilum may reflectunderlying reactive adenopathy. Repeat chest radiograph in 6-8 weeks isrecommended to ensure resolution and exclude an underlying mass lesion. Problems: 1.Right lower lobe community-acquired pneumonia 2.hyponatremia. Sodium is 132 today 3.transaminitis. AST 143, ALT 96, alk phos 36 4.sepsisresolved Assessment and plan: diseasUrine was positive for Legionella antigen, negative for S pneumo antigen -Continue current management with azithromycin 500 IV daily - d/c ceftriaxone 1000 IV daily room air. - we will start tamsulosin & will obtain post void bladder scan Problem List: 1. Legionnaires' disease Pain Ratin Pain Location: none Pain Goal: Remain pain free Pain Plan: follow pain pathway Tomorrow's Labs & Rationales: cbc
[2018-07-24 14:16] VITALS: BP 108/58
[2018-07-24] MEDS ORDERED: AZITHROMYCIN250 M1 PO ×2 (15:08→15:14)
--- NOTE | 2018-07-24 23:57 | Discharge Summary ---
Visit Information Visit Dates Admission Date: 07/21/18 Discharge Date: 07/24/18 Hospital Course Course Attending Physician: Ingrid Apple MD Primary Care Physician: Ladarius HORTON,Chad [facility] Course: Mr Saxena is a 67-year-old gentleman with a past history of coronary artery disease (status post PCI-10/2017 at [facility]), basal cell carcinoma, current smoker (50PPD), who came to the hospital with a chief concern of increased tiredness, myalgias and nonproductive cough x 1 wk. 1 week ago, he developed increased tiredness, myalgias, joint pains, occasional headaches, nonproductive cough, occasional tachypnea. Fever 102 associated with chills and nausea. No abdominal pain, dysuria, diarrhea. The night prior to admission, he fell down while he was walking down to his bathroom. Denies: head injury, prodromal symptoms. 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 Denies: CP, palpitations, sob, recent changes in bowel of bladder habits, sick contacts, travel outside [place]. No previous hisotory of health care associated pneumonia, or aspiration. At the time of admission, temperature 99.0, MAXIMUM TEMPERATURE 103), pulse rate 88, blood pressure 94/50, pulse ox 94% on room air. On PE: Normal Air Movement, basal crackles on the right lung. Unremarkable rest of exam. WBC 12.8, with granulocytosis, band neutrophils 18%, Hemoglobin 12.0, Platelet count 184, Sodium 129, potassium 4.0, chloride 94. BUN 30, creatinine 1.5(baseline 1.2), Lactic acid 1.3, AST 132, ALT 83, alkaline phosphatase 43. Chest x-ray- There is a dense medial right lower lung consolidation consistent with right lower lobe pneumonia. Increased density within the right hilum may reflect underlying reactive adenopathy. The pt had typical signs and symptoms of pneumonia, leukocytosis and radiological signs of consolidation; is likely bacterial pneumonia. Given hyponatremia, elevated liver enzymes legionella was a possibility. Based on the severity of illness, elevated CURB 65 score, and coexisting conditions, he was admitted to general medicine service. He was started on Azithro 500 mg daily IV & ceftriaxone 1000 mg daily IV. Other home meds were continued. He remained febrile for the first 3 days in the hospital. His urine Ag for legionella came back +ve, urine negative for S pneumo antigen, Influ A & B neg, bld cx remained neg. Ceftriaxone was later d/c'ed because cultures remained negative. Pt was stable and was d/c on Azithro 250 mg PO daily for three more days. Allergies: Coded Allergies: No Known Allergies (09/06/17) Pertinent Lab Results: CXR Sep 26: FINDINGS: There is a dense consolidation within the medial right lower lung consistent with a right lower lobe pneumonia. There is increased density within the right hilum which may reflect underlying reactive adenopathy. Left lung remains clear. Cardiac silhouette is normal in size and configuration. There is mild atherosclerotic calcification of the aortic knob. No pleural effusion or pneumothorax. There are degenerative changes of the acromioclavicular joints. There are mild degenerative changes throughout the thoracic spine. IMPRESSION: There is a dense medial right lower lung consolidation consistent with right lower lobe pneumonia. Increased density within the right hilum may reflect underlying reactive adenopathy. Repeat chest radiograph in 6-8 weeks is recommended to ensure resolution and exclude an underlying mass lesion. HEAD CT Sep 26: IMPRESSION: No acute intracranial pathology. Extensive white matter changes which are nonspecific but could be seen with chronic microvascular ischemia. Scattered paranasal sinus disease. CERVICAL SPINE CT Sep 26: IMPRESSION: No acute fracture in the cervical spine. Disposition Summary Disposition Principal Diagnosis: Legionnaire's Disease Additional Diagnosis: none Discharge Disposition: home or self care Discharge Instructions General Discharge Information Code Status: Full Code Patient's Diet: regular Patient's Activity: as tolerated Follow-Up Instructions/Appts: Watch for these problems: If you have any of these, please visit your nearest emergency department: Chest pain, shortness of breath, fever, chills, worsening cough, altered mental status Special Instructions: -please visit your primary care doctor one week after discharge & tell them about your recent stay at [facility] Medications at Discharge Discharge Medications: Continue taking these medications: Aspirin (Lo-Dose Aspirin EC) 81 MG TABLET. 1 Tablet ORAL DAILY Qty = 30 Comments: Last Taken:07/24/18 Time:1100 AM Metoprolol Tartrate (Metoprolol Tartrate) 25 MG TABLET 1 Tablet ORAL TWICE DAILY Qty = 180 Comments: NOT GIVEN IN HOSPITAL Ticagrelor (Brilinta) 90 MG TABLET 1 Tablet ORAL TWICE DAILY Qty = 180 Comments: Last Taken:07/24/18 Time:1100 AM Lisinopril (Lisinopril) 5 MG TABLET 1 Tablet ORAL DAILY Qty = 90 Comments: NOT GIVEN IN HOSPITAL Atorvastatin Calcium (Atorvastatin Calcium) 80 MG TABLET 1 Tablet ORAL DAILY Days = 30 Comments: NOT GIVEN IN HOSPITAL Start taking the following new medications: Azithromycin (Azithromycin) 250 MG TABLET 1 Dose Pack ORAL DAILY Qty = 3 No Refills Instructions: . Comments: IV DOSE 500MG GIVEN IN HOSPITAL 07/24/18 @ 1100 AM BEGIN TAKING PILLS ON 07/25/18 Copies To: Ladarius HORTON,Chad Mosher MD Review Statement Documenting Attending: Zechariah HORTON,Ingrid Other Findings: Mr Saxena is a 67-year-old gentleman with a past history of coronary artery disease (status post PCI-10/2017 at [facility]), basal cell carcinoma who is admitted to the hospital with a chief concern of increased tiredness, myalgias and nonproductive cough x 1 wk 2/2 community acquired pneumonia with right lobe consolidation from legionella pneumonia. Patient conidtion improved and he was discharged in stable condition. Follow up with PCP in 1 week of discharge.
== END 2018-07-24 16:05 | DRG 178 ==
LOC: ERH 05:50 → 2NB 08:21 → ERHI 08:21 → ENRESERV 12:10 → ENTRNSPT 13:04 → EDTRNSPT 13:13 → ERHI 13:22 → EDTRNSPTSTS 14:01 → 2NB 14:12 → CMPTRNSPT 14:18 → 2NB 07-24 16:05
PROVIDERS: Internal Medicine; Internal Medicine Endocrinology, Diabetes & Metabolism; Pediatrics
DX: A48.1 Legionnaires' disease (principal); E87.1 Hypo-osmolality and hyponatremia; I25.10 Atherosclerotic heart disease of native coronary artery without angina pectoris; Z98.61 Coronary angioplasty status; E78.5 Hyperlipidemia, unspecified; I25.2 Old myocardial infarction; I10 Essential (primary) hypertension; R74.0 Nonspecific elevation of levels of transaminase and lactic acid dehydrogenase [LDH]
CPT/HCPCS: 2NBP; 84133; 84300; 36415; 36592; 71046; 81001; 82436; 82570; 87040; 87070; 87086; 87449; 87450; 87804; 87804-59; 93005; 93010; 96361; 96365; 96375; 99291; J0131; J0456; J0696; J1644; J3490; J7040